=== PATIENT | female | born 1995 | race Caucasian/White ===

== ENCOUNTER → 2020-04-26 | Outpatient (CLI) | payer BC, MEDICAID ==
[~2020-04-26] MED LIST: DEPO-PROVER150 MG/M1 IM; PEPTO-BISMOL1 TAB PO; TUMS200 MG PO; [UNRECOGNIZED DRUG - REMARK] PO
== END ==
LOC: M.LAB 11:06
PROVIDERS: ATTEND Surgery
DX: Z01.812 Encounter for preprocedural laboratory examination (principal); Z20.822 Contact with and (suspected) exposure to COVID-19; K80.20 Calculus of gallbladder without cholecystitis without obstruction

== ENCOUNTER → 2020-04-29 | Day surgery (SDC) | payer BC, MEDICAID ==
[~2020-04-29] MED LIST changes: +NORCO5 PO
[2020-04-29 11:28] LABS: HEMOGLOBIN 13.2 gm/dL (12.0-15.0)
[2020-04-29 13:17] LABS: CREATININE 0.8 mg/dL (0.6-1.3); POTASSIUM 3.9 mmol/L (3.5-5.1)
[2020-04-29 13:22] LABS: ALBUMIN 3.3 g/dL (3.4-5.0); TOTAL BILIRUBIN 0.2 mg/dL (<0.1-1.0); TOTAL PROTEIN 7.8 g/dL (6.4-8.2)
--- NOTE | 2020-05-01 09:15 | OP ---
[facility] [address] [place] [address] OPERATIVE REPORT Name: EVE SOMMER Room: [facility]#: [id number] Admission: 04/29/20 Attend Phys: Ulisses Combs Discharge: Date of : 89 Report #: [id number] THIS REPORT FOR: cc: Michelle Chi MD, Ghazal A. MD ~ Ulisses Combs MD DATE OF SERVICE: 04/29/2020 PREOPERATIVE DIAGNOSIS: Symptomatic cholelithiasis. POSTOPERATIVE DIAGNOSIS: Symptomatic cholelithiasis. OPERATION: Laparoscopic cholecystectomy. SURGEON: Ulisses Combs MD ANESTHESIA: General. ESTIMATED BLOOD LOSS: Minimal. SPECIMEN: Gallbladder. DESCRIPTION OF PROCEDURE: After informed consent was obtained, the patient was brought to the operating room and placed supine. SCDs were placed and working, preoperative antibiotics were administered, general anesthesia was induced. The abdomen was prepped and draped in the usual sterile fashion. A 10 mm incision was made below the umbilicus. Fascia was incised and a trocar was placed. Pneumoperitoneum was established. Three right upper quadrant 5 mm ports were placed. Gallbladder was grasped. the fundus and retracted cephalad. Infundibulum was grasped and retracted laterally. I dissected out the cystic duct and cystic artery. The cystic duct plate was fully identified. The cystic duct and artery were clipped and ligated leaving 2 clips on the remaining duct and one on the remaining artery. Gallbladder was then taken off the liver bed with electrocautery. It was placed into an Endopouch and removed. Fascia was then closed with a [id number]-ynizo 0 Vicryl. Skin was closed with 4-0 Monocryl. Incisions were sealed with Steri-Strips. COMPLICATIONS: None. DISPOSITION: The patient was taken to recovery in satisfactory condition. <ELECTRONICALLY SIGNED> By: Ulisses Combs MD 05/01/20 0915 [id number] [id number] Combs MD /nt
--- NOTE | 2020-05-03 17:06 | PATH ---
[address] [address] PATHOLOGY RPT PROCEDURE Name: NERY SOMMER Room: [facility].#: [id number] Admission: 04/29/20 Date of : 89 Discharge: Report #: [id number] Path Case #: [id number] [facility] Accession Number: [id number] . 01 Material submitted: . gallbladder - GALLBLADDER WITH CONTENTS . 01 Clinical history: . CALCULUS OF GALLBLADDER . 02 Diagnosis: Gallbladder: - Chronic cholecystitis, cholesterolosis and cholelithiasis. (VIVIENNE:masood; 05/03/2020) [facility] [place] [facility] [place] 1428 Local . 02 Electronically signed: . Toni Guadarrama MD, Pathologist NPI- [id number] . 01 Gross description: . The specimen is received in formalin, labeled "Nery Faina, gallbladder". Received is an intact gallbladder measuring 10.2 x 2.9 x 2.6 cm in greatest dimensions displaying a pink-sin to yellow-sin serosal surface. Opening the specimen reveals a velvety, bile-stained mucosa with a gallbladder wall thickness of 0.1 cm. Calculi are present displaying a yellow-sin and nodular appearance, and no masses or lesions are noted grossly. Driller'S Offsider sections, to include the proximal margin, are submitted in cassette A1. (CAA; 05/02/2020) QAC/QAC 05/02/2020 1519 Local . 02 Pathologist provided ICD-10: K80.10, K82.4 . 02 CPT . 102532 Specimen Comment: A courtesy copy of this report has been sent to [phone] Specimen Comment: Report sent to / Performed at: 01 [facility] [address] [place] [address] [address], [place], [place] [id number] MD Trent Grijalva MD Phone: [phone] Performed at: 02 [facility] [address] [address] [place], [place] [id number] MD Toni Guadarrama MD Phone: [phone]
== END | disposition home or self-care (01) ==
LOC: M.SUR 06:27
PROVIDERS: ATTEND Surgery
DX: K80.10 Calculus of gallbladder with chronic cholecystitis without obstruction (principal); Z98.890 Other specified postprocedural states; Z79.899 Other long term (current) drug therapy; Z88.8 Allergy status to other drugs, medicaments and biological substances